=== PATIENT | female | born 1930 | race African-American/Black ===

== ENCOUNTER 2021-07-10 18:42 | Inpatient (IN) ==
[2021-07-11] MEDS ORDERED: Ondansetron ODT 4 MG TAB.RAPDIS SL PRN (17:15)
[2021-07-11] MEDS ORDERED: Acetaminophen 325 MG TABLET PO PRN (17:15)
[2021-07-11] MEDS: Ranolazine 500 MG TAB.ER.12H PO SCH (21:20)
[2021-07-11] MEDS: Cefdinir 300 MG CAPSULE PO SCH (21:20)
[2021-07-11] MEDS: Apixaban 5 MG TABLET PO SCH (21:20)
[2021-07-12 06:37] LABS: Basophils % 0.9 %; Eosinophils # 0.2 K/mcL (0.0-0.6); Eosinophils % 4.8 %; Hematocrit 29.5 % (35.3-44.9); Hemoglobin 9.6 g/dL (11.5-15.4); Immature Granulocytes % 0.2 % (0-4); Lymphocytes # 0.7 K/mcL (0.6-4.6); Lymphocytes % 14.7 %; Mean Corpuscular HGB Conc 32.5 g/dL (31.6-35.5); Mean Corpuscular Hemoglobin 23.9 pg (28.0-33.3); Mean Corpuscular Volume 73.4 fL (83.0-100.0); Mean Platelet Volume 9.9 fL (9.4-12.4); Monocytes # 0.4 K/mcL (0.0-1.3); Monocytes % 9.6 %; Neutrophils # 3.2 K/mcL (1.6-8.9); Platelet Count 214 K/mcL (140-400); Red Blood Count 4.02 M/mcL (3.82-4.97); Red Cell Distribution Width 16.1 % (11.5-14.5); Segmented Neutrophils % 69.8 %; White Blood Count 4.6 K/mcL (4.3-11.1)
[2021-07-12 06:53] LABS: BUN/Creatinine Ratio 9 (6-26); Blood Urea Nitrogen 9 mg/dL (8-23); Calcium 8.9 mg/dL (8.6-10.3); Carbon Dioxide 33 mEq/L (23-29); Chloride 95 mEq/L (98-107); Glucose 87 mg/dL (70-105); Osmolality,Calculated 274 (280-300); Potassium 3.8 mEq/L (3.5-5.1); Sodium 133 mEq/L (136-145); eGFR For African Americans > 60 (> 60); eGFR For Non-African Americans 52 (> 60)
[2021-07-12] MEDS: Furosemide 20 MG TABLET PO SCH ×2 (09:01→17:09)
[2021-07-12] MEDS: Cefdinir 300 MG CAPSULE PO SCH (09:02)
[2021-07-12] MEDS: Aspirin Enteric Coated 81 MG Tablet PO SCH (09:02)
[2021-07-12] MEDS: Apixaban 5 MG TABLET PO SCH ×2 (09:02→19:45)
[2021-07-12] MEDS: Ranolazine 500 MG TAB.ER.12H PO SCH ×2 (09:02→19:45)
[2021-07-12] MEDS: Isosorbide MONOnitrate (24 HR) 60 MG TAB.ER.24H PO SCH (09:02)
[2021-07-13] MEDS: Aspirin Enteric Coated 81 MG Tablet PO SCH (08:09)
[2021-07-13] MEDS: Isosorbide MONOnitrate (24 HR) 60 MG TAB.ER.24H PO SCH (08:09)
[2021-07-13] MEDS: Apixaban 5 MG TABLET PO SCH ×2 (08:09→22:10)
[2021-07-13] MEDS: Cefdinir 300 MG CAPSULE PO SCH (08:09)
[2021-07-13] MEDS: Furosemide 20 MG TABLET PO SCH ×2 (08:09→16:50)
[2021-07-13] MEDS: Ranolazine 500 MG TAB.ER.12H PO SCH ×2 (08:09→22:10)
[2021-07-14] MEDS: Aspirin Enteric Coated 81 MG Tablet PO SCH (08:57)
[2021-07-14] MEDS: Furosemide 20 MG TABLET PO SCH ×2 (08:57→16:32)
[2021-07-14] MEDS: Apixaban 5 MG TABLET PO SCH ×2 (08:58→20:03)
[2021-07-14] MEDS: Isosorbide MONOnitrate (24 HR) 60 MG TAB.ER.24H PO SCH (08:58)
[2021-07-14] MEDS: Cefdinir 300 MG CAPSULE PO SCH (08:58)
[2021-07-14] MEDS: Ranolazine 500 MG TAB.ER.12H PO SCH ×2 (08:58→20:03)
[2021-07-14] MEDS: Sennosides/Docusate Sodium TABLET PO PRN (16:40)
[2021-07-15] MEDS: Furosemide 20 MG TABLET PO SCH ×2 (09:39→16:20)
[2021-07-15] MEDS: Cefdinir 300 MG CAPSULE PO SCH (09:39)
[2021-07-15] MEDS: Apixaban 5 MG TABLET PO SCH ×2 (09:40→22:13)
[2021-07-15] MEDS: Ranolazine 500 MG TAB.ER.12H PO SCH ×2 (09:40→22:13)
[2021-07-15] MEDS: Isosorbide MONOnitrate (24 HR) 60 MG TAB.ER.24H PO SCH (09:40)
[2021-07-15] MEDS: Aspirin Enteric Coated 81 MG Tablet PO SCH (09:40)
[2021-07-15] MEDS: hydroCHLOROthiazide 25 MG TABLET PO SCH (16:19)
[2021-07-16] MEDS: Isosorbide MONOnitrate (24 HR) 60 MG TAB.ER.24H PO SCH (09:00)
[2021-07-16] MEDS: Aspirin Enteric Coated 81 MG Tablet PO SCH (09:01)
[2021-07-16] MEDS: hydroCHLOROthiazide 25 MG TABLET PO SCH (09:01)
[2021-07-16] MEDS: Apixaban 5 MG TABLET PO SCH ×2 (09:01→22:10)
[2021-07-16] MEDS: Furosemide 20 MG TABLET PO SCH ×2 (09:02→16:30)
[2021-07-16] MEDS: Ranolazine 500 MG TAB.ER.12H PO SCH ×2 (09:02→22:09)
[2021-07-16] MEDS: Cefdinir 300 MG CAPSULE PO SCH (09:02)
[2021-07-16] MEDS: Benzonatate 100 MG CAPSULE PO PRN (22:09)
[2021-07-16] MEDS ORDERED: hydrALAZINE 10 MG TABLET PO ONE (22:57)
[2021-07-17 09:05] LABS: BUN/Creatinine Ratio 9 (6-26); Blood Urea Nitrogen 9 mg/dL (8-23); Calcium 9.2 mg/dL (8.6-10.3); Carbon Dioxide 31 mEq/L (23-29); Chloride 92 mEq/L (98-107); Glucose 93 mg/dL (70-105); Osmolality,Calculated 272 (280-300); Sodium 132 mEq/L (136-145); eGFR For African Americans > 60 (> 60); eGFR For Non-African Americans 53 (> 60)
[2021-07-17] MEDS ORDERED: hydrALAZINE 10 MG TABLET PO PRN (10:02)
[2021-07-17] MEDS: Benzonatate 100 MG CAPSULE PO PRN ×2 (10:26→22:05)
[2021-07-17] MEDS: Aspirin Enteric Coated 81 MG Tablet PO SCH (10:26)
[2021-07-17] MEDS: Furosemide 20 MG TABLET PO SCH ×2 (10:27→17:39)
[2021-07-17] MEDS: Cefdinir 300 MG CAPSULE PO SCH (10:27)
[2021-07-17] MEDS: Ranolazine 500 MG TAB.ER.12H PO SCH ×2 (10:27→22:05)
[2021-07-17] MEDS: Isosorbide MONOnitrate (24 HR) 60 MG TAB.ER.24H PO SCH (10:27)
[2021-07-17] MEDS: Apixaban 5 MG TABLET PO SCH (10:27)
[2021-07-17] MEDS: Valsartan 80 MG TABLET PO SCH (10:29)
[2021-07-17] MEDS: hydroCHLOROthiazide 25 MG TABLET PO SCH (11:28)
[2021-07-17 18:16] LABS: Hematocrit 33.5 % (35.3-44.9); Mean Corpuscular HGB Conc 33.7 g/dL (31.6-35.5); Mean Corpuscular Hemoglobin 24.1 pg (28.0-33.3); Mean Corpuscular Volume 71.6 fL (83.0-100.0); Mean Platelet Volume 9.7 fL (9.4-12.4); Platelet Count 269 K/mcL (140-400); Red Blood Count 4.68 M/mcL (3.82-4.97); Red Cell Distribution Width 15.7 % (11.5-14.5); White Blood Count 5.2 K/mcL (4.3-11.1)
[2021-07-17 18:17] LABS: Hemoglobin 11.3 g/dL (11.5-15.4)
[2021-07-17 20:00] LABS: Bilirubin,Urine Small (Negative); Blood,Urine Large (Negative); Clarity,Urine Turbid (Clear); Color,Urine Amber (Yellow); Glucose,Urine (UA) Normal (Normal); Ketones,Urine Trace mg/dL (Negative); Leukocyte Esterase,Urine Negative (Negative); Nitrite,Urine Negative (Negative); Protein,Urine >=300 mg/dL (Neg-Trace); Urobilinogen,Urine Normal (Normal)
[2021-07-17 20:19] LABS: RBC,Urine TNTC per hpf (0-3)
[2021-07-18] MEDS: Furosemide 20 MG TABLET PO SCH ×2 (09:55→17:25)
[2021-07-18] MEDS: Ranolazine 500 MG TAB.ER.12H PO SCH ×2 (09:56→20:10)
[2021-07-18] MEDS: Aspirin Enteric Coated 81 MG Tablet PO SCH (09:56)
[2021-07-18] MEDS: Benzonatate 100 MG CAPSULE PO PRN ×2 (09:56→20:09)
[2021-07-18] MEDS: Isosorbide MONOnitrate (24 HR) 60 MG TAB.ER.24H PO SCH (09:56)
[2021-07-18] MEDS: Valsartan 80 MG TABLET PO SCH (09:56)
[2021-07-19] MEDS: Isosorbide MONOnitrate (24 HR) 60 MG TAB.ER.24H PO SCH (09:09)
[2021-07-19] MEDS: Aspirin Enteric Coated 81 MG Tablet PO SCH (09:09)
[2021-07-19] MEDS: Ranolazine 500 MG TAB.ER.12H PO SCH ×2 (09:09→19:55)
[2021-07-19] MEDS: Furosemide 20 MG TABLET PO SCH ×2 (09:09→17:18)
[2021-07-19] MEDS: Valsartan 80 MG TABLET PO SCH (09:09)
[2021-07-19 09:49] LABS: Hemoglobin 10.7 g/dL (11.5-15.4); Mean Corpuscular HGB Conc 33.4 g/dL (31.6-35.5); Mean Corpuscular Hemoglobin 23.9 pg (28.0-33.3); Mean Corpuscular Volume 71.6 fL (83.0-100.0); Mean Platelet Volume 9.7 fL (9.4-12.4); Platelet Count 256 K/mcL (140-400); Red Blood Count 4.47 M/mcL (3.82-4.97); Red Cell Distribution Width 15.9 % (11.5-14.5); White Blood Count 4.3 K/mcL (4.3-11.1)
[2021-07-19 10:02] LABS: Calcium 9.3 mg/dL (8.6-10.3); Potassium 3.1 mEq/L (3.5-5.1)
[2021-07-19] MEDS: Sennosides/Docusate Sodium TABLET PO PRN (19:54)
[2021-07-19] MEDS: Benzonatate 100 MG CAPSULE PO PRN (19:54)
[2021-07-20] MEDS: Furosemide 20 MG TABLET PO SCH ×2 (08:15→16:11)
[2021-07-20] MEDS: Valsartan 80 MG TABLET PO SCH (08:15)
[2021-07-20] MEDS: Isosorbide MONOnitrate (24 HR) 60 MG TAB.ER.24H PO SCH (08:15)
[2021-07-20] MEDS: Ranolazine 500 MG TAB.ER.12H PO SCH ×2 (08:16→19:40)
[2021-07-20] MEDS: Aspirin Enteric Coated 81 MG Tablet PO SCH (08:16)
[2021-07-20 08:33] LABS: Hematocrit 32.1 % (35.3-44.9); Hemoglobin 10.7 g/dL (11.5-15.4)
[2021-07-20] MEDS: Apixaban 5 MG TABLET PO SCH (19:40)
[2021-07-21] MEDS: Aspirin Enteric Coated 81 MG Tablet PO SCH (07:46)
[2021-07-21] MEDS: Apixaban 5 MG TABLET PO SCH ×2 (07:46→19:46)
[2021-07-21] MEDS: Furosemide 20 MG TABLET PO SCH ×2 (07:46→15:45)
[2021-07-21] MEDS: Valsartan 80 MG TABLET PO SCH (07:46)
[2021-07-21] MEDS: Isosorbide MONOnitrate (24 HR) 60 MG TAB.ER.24H PO SCH (07:47)
[2021-07-21] MEDS: Ranolazine 500 MG TAB.ER.12H PO SCH ×2 (07:47→19:46)
[2021-07-22] MEDS: Furosemide 20 MG TABLET PO SCH ×2 (07:58→16:37)
[2021-07-22] MEDS: Isosorbide MONOnitrate (24 HR) 60 MG TAB.ER.24H PO SCH (07:58)
[2021-07-22] MEDS: Ranolazine 500 MG TAB.ER.12H PO SCH ×2 (07:58→19:33)
[2021-07-22] MEDS: Valsartan 80 MG TABLET PO SCH (07:59)
[2021-07-22] MEDS: Apixaban 5 MG TABLET PO SCH ×2 (07:59→19:33)
[2021-07-22] MEDS: Aspirin Enteric Coated 81 MG Tablet PO SCH (07:59)
[2021-07-23 07:06] VITALS: BP 166/89; PULSE 63; RESP 18; TEMP 97.5; O2SAT 98
[2021-07-23] MEDS: Aspirin Enteric Coated 81 MG Tablet PO SCH (07:38)
[2021-07-23] MEDS: Isosorbide MONOnitrate (24 HR) 60 MG TAB.ER.24H PO SCH (07:38)
[2021-07-23] MEDS: Valsartan 80 MG TABLET PO SCH (07:39)
[2021-07-23] MEDS: Ranolazine 500 MG TAB.ER.12H PO SCH (07:39)
[2021-07-23] MEDS: Furosemide 20 MG TABLET PO SCH (07:39)
[2021-07-23] MEDS: Apixaban 5 MG TABLET PO SCH (07:39)
== END 2021-07-23 11:00 | disposition home health service (06) | DRG 280 ==
LOC: INPPIK 07-11 16:47
PROVIDERS: ADMIT Internal Medicine; ATTEND Internal Medicine